=== PATIENT | male | born 1940 | race Caucasian/White ===

== ENCOUNTER 2025-02-27 21:01 | Emergency (ER) | payer MEDICARE | END 2025-02-27 22:16 | disposition home or self-care (01) | LOC: MW.ED 21:01 | DX: E11.649 Type 2 diabetes mellitus with hypoglycemia without coma (principal); I48.91 Unspecified atrial fibrillation; Z79.4 Long term (current) use of insulin; Z79.01 Long term (current) use of anticoagulants; Z79.82 Long term (current) use of aspirin; Z79.899 Other long term (current) drug therapy | CPT/HCPCS: 82947; 99284 ==